=== PATIENT | female | born 1985 | race Caucasian/White ===

== ENCOUNTER 2024-05-26 11:21 | Outpatient (AMB) | payer BC, SELFPAY ==
--- NOTE | 2024-05-26 11:25 | A.OFFPC_ITS ---
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: No Is last menstrual period known: Yes Last menstrual period: 05/04/24 Post menopausal: No Patient : No Allergies No Known Allergies Allergy (Verified 05/26/24 11:40) Medication List - Last Reconciled 05/26/24 by Raquel Sunshine CNP fexofenadine-pseudoephedrine 180-240 mg ER (Tabitha-D 24 Hour) 1 tab PO QAM Tobacco use date assessed: 05/26/24 Dental Screening Dental Screen Date: 05/26/24 Did you have a dental visit in the last 12 months?: No Did you have a dental problem in the last 6 months where you did not have access to dental care?: No Was dental information given to patient?: Patient declined HPI HPI Comments History of Present Illness Details New patient Prior PCP:?[facility] Last office visit/CPE: About 2 years Acute issue(s): [place] of both ears -She wears hearing aids She is on Tabitha D once daily Reports intermittent allergic skin reactions with rash, swollen lip, tongue, wrist, or finger for over 2 years. Her last episode with a swollen finger was 5 days ago. No acute symptoms at this time. She was followed by [facility]; last visit was 2 years ago; she has an appointment with them next month but needs a referral from her PCP PMHx: Psoriasis, eczema, [place] both ears SurgHx: Lumpectomy (left lateral breast), ear tubes bilaterally FHx: Dad: HTN. Mom: DM. MGM: DM. MGF: DM SocHx: Nonsmoker. Drinks 1-2 glasses of wine monthly. No recreational drugs Last eye exam was 2-3 years ago Last [facility] [place] 3 years ago: normal. Record not available. She will sign a release for her PCP to obtain record Last tetanus vaccine was over 10 years ago, declines vaccination She has never been vaccinated for the flu and declines vaccination at this time [facility] Medical History (Updated 05/26/24 @ 15:01 by Raquel Sunshine CNP) Psoriasis Eczema Surgical History (Updated 05/26/24 @ 11:40 by Lakia Ferrell MA) History of placement of ear tubes H/O lumpectomy Family History (Updated 05/26/24 @ 11:43 by Lakia Ferrell MA) Father High blood pressure High cholesterol Mother Diabetes Maternal Grandfather Diabetes Maternal Grandmother Diabetes Brother Diabetes Social History Housing: House Patient Tobacco Use Status: Never used Tobacco e-Cigarette/Vaping Use: Never Used Second Hand Smoke Exposure: No service: No Current occupational status: employed 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 1. Little interest or pleasure in doing things: not at all 2. Feeling down, depressed, or hopeless: not at all 3. Trouble falling or staying asleep, or sleeping too much: not at all 4. Feeling tired or having little energy: several days 5. Poor appetite or overeating: more than half the days 6. Feeling bad about yourself - or that you are a failure or have let yourself or your family down: not at all 7. Trouble concentrating on things, such as reading the newspaper or watching television: several days 8. Moving or speaking so slowly that other people could have noticed. Or the opposite - being so fidgety or restless that you have been moving around a lot more than usual: not at all 9. Thoughts that you would be better off or of hurting yourself in some way: not at all Total score: 4 Depression Screening Interpretation: Negative Depression Screening Done: Yes 50454 - PHQ-9 Billing: Yes Source: Developed by Drs. Bob Juarez, Madiha Bolanos, Faizan Hobson and colleagues, with an educational padmini from [employer] Thrive Questionnaire Date Thrive assessed: 05/26/24 I am a: Patient What is your living situation today?: I have a steady place to live Within the past 12 months, did the food you bought not last and you didn't have the money to get more?: Never true Within the past 12 months, did you worry whether your food would run out before you got money to buy more?: Never true Do you have trouble paying for medicines?: No Do you have trouble getting transportation to medical appointments?: No Do you have trouble paying your heating and electricity bill?: No Do you have trouble taking care of your child, family member or friend?: No Do you have trouble with day-to-day activities such as bathing, preparing meals, shopping, managing finances, etc.?: No Are you currently unemployed and looking for a job?: No Are you interested in more education?: No Please select the resources that you would like help with: None Currently or been in a relationship where the following occur: No concerns reported THRIVE Score: 0 AUDIT C Alcohol Use Questionnaire (AUDIT-C) 1. How often do you have a drink containing alcohol?: 2-4 times a month 2. How many drinks containing alcohol do you have on a typical day when you are drinking?: 1 or 2 3. How often do you have six or more drinks on one occasion?: Never Total Score: 2 Score Reviewed/Action Taken: Yes EMMA-7 AMB Questionnaire EMMA-7 Date EMMA - 7 assessed: 05/26/24 Feeling nervous, anxious, or on edge: 1 = Several days Not being able to stop or control worryin = Not at all Worrying too much about different things: 1 = Several days Trouble relaxin = Not at all Being so restless that it is hard to sit still: 0 = Not at all Becoming easily annoyed or irritable: 0 = Not at all Feeling afraid as if something awful might happen: 0 = Not at all Total EMMA-7 score (0-4 normal; 5-9 mild; 10-14 moderate; 15-21 severe): 2 Source: Developed by Drs. Bob Juarez, Madiha Bolanos, Faizan Hobson and colleagues, with an educational padmini from [employer] EMMA-7 Assessment Billing EMMA-7 Assessment Tool: EMMA-7 Assessment 79387 Review of Systems Const Details: Denies chills, Denies fatigue, Denies fever(s), Denies headache(s) and Denies weakness HEENT Denies change in vision, Denies dizziness, Denies headache(s), Denies hearing loss, Denies nasal congestion, Denies sinus pain, Denies sinus pressure and Denies sore throat Card Denies chest pain, Denies lightheadedness, Denies dyspnea and Denies other (palpitations) Resp Denies cough, Denies dyspnea and Denies wheezing GI Denies abdominal pain, Denies melena, Denies hematochezia, Denies change in bowel habits, Denies dyspepsia and Denies nausea Denies hematuria and Denies dysuria Musc Denies abnormal gait, Denies myalgias, Denies arthralgias, Denies numbness and Denies tingling Skin/Breast Denies rash, Denies unusual bruising and Denies wounds Neuro Denies abnormal gait, Denies dizziness, Denies headache(s), Denies memory loss, Denies numbness, Denies Sensory deficit (Neuro), Denies tingling and Denies weakness Psych Denies anxiety, Denies depression and Denies memory loss Endo Denies cold intolerance, Denies fatigue, Denies heat intolerance, Denies polydipsia and Denies polyuria Wayne/Lymph Denies easy bleeding and Denies easy bruising Aller/Immun Denies wheezing Physical exam (Primary Care) Vital Signs: Last Vital Signs Temp 99.1 F 05/26/24 11:32 Pulse 94 05/26/24 11:32 Resp 16 05/26/24 11:32 BP 130/92 H 05/26/24 11:32 Pulse Ox 100 05/26/24 11:32 Oxygen Delivery Method Room Air 05/26/24 11:32 BMI result Body Mass Index 41.8 Tobacco/Smoking Status: Tobacco use Status Tobacco use date assessed 05/26/24 05/26/24 11:31 Patient Tobacco Use Status Never used Tobacco 05/26/24 11:31 e-Cigarette/Vaping Use Never Used 05/26/24 11:31 Depression Screening Interpretation: Negative Currently or been in a relationship where the following occur: No concerns reported Const Other: General: no acute distress, well developed, alert and awake Nutritional Appearance: well nourished Orientation/consciousness: patient oriented x3 HENMT Head: Yes normocephalic and Yes atraumatic Ears: [place] bilaterally and impacted cerumen bilaterally, occluding the TMs General nose exam: Normal external nose present and Normal nares present Mouth: Normal oral and palatal mucosa present and moist mucous membranes Teeth and gingiva: dentition normal Throat: Yes oropharynx normal Eyes Pupils: Equal, round and reactive pupils present and Pupil accommodation reflex normal EOM: EOMs intact bilaterally Neck Neck: Yes normal visual inspection, Yes no lymphadenopathy and Yes trachea midline Thyroid: Thyroid normal Carotids: no bruits Lymphatic: no lymphadenopathy noted Chest Chest palpation & inspection: normal inspection of the chest Resp Effort & Inspection: normal respiratory effort Auscultation: clear to auscultation bilaterally Cardio Rate: regular rate Rhythm: regular rhythm Heart sounds: S1 normal heart sound present, S2 normal heart sound present, no gallops, no murmurs and no rubs Bruits: no abdominal aortic bruits and no carotid bruits GI Palpation (GI): No Abdominal aortic bruit present, Soft to palpation, nontender, No hepatosplenomegaly present and No Rebound tenderness present Auscultation: normal bowel sounds General: Yes no CVA tenderness Back/Spine/Pelvis Back: no CVA tenderness Cervical Spine: cervical ROM normal and No Cervical spine tenderness Thoracic/Lumbar Spine: thoraco-lumbar ROM normal, No pain with thoraco-lumbar ROM, No thoracic spinal tenderness and No lumbar spinal tenderness Skin General: warm and dry. Normal skin color. Normal skin turgor Lesions: no lesions Rashes: no rashes Trauma: no lacerations or abrasions Wounds: no wounds Nails: normal Neuro General: patient oriented x3, gait normal and CN's II-XI intact bilaterally Cranial nerves: Yes Equal, round and reactive pupils present Cognition (Neuro): normal cognition Gait exam (Neuro): Normal gait present Motor exam (neuro): 5/5 motor strength present throughout Sensory Exam: No Sensory deficit (Neuro) Deep tendon reflexes (DTR's): Right patellar reflex intensity grade: 2+ and Left patellar reflex intensity grade: 2+ Extrem General: Yes normal to inspection, No edema and No calf tenderness Psych Appearance: grossly normal Affect: normal affect Attitude: cooperative Thought process: Normal thought process present Coding Level of Care Code New Pt Level 4 (53909) New Pt Prev Care 40-64y(22397) Diagnoses Normal physical examination, routine Z00.00 Allergies T78.40XA Eye exam, routine Z01.00 Impacted cerumen of both ears H61.23 Vaccine counseling Z71.85 Morbid obesity with BMI of 40.0-44.9, adult E66.01; Z68.41 [place] (hard of hearing) H91.90 Laboratory tests ordered as part of a complete physical exam (CPE) Z00.00 Additional Codes EMMA-7 Assessment Billing - EMMA-7 Assessment Tool: EMMA-7 Assessment 85387 ([id number]) Assessment & Plan Assessment & Plan (1) Normal physical examination, routine: Code(s): Z00.00 - Encounter for general adult medical examination without abnormal findings Category: Medical Plan: No significant functional limitations noted Continue current treatment regimen Healthy diet and routine exercise encouraged Advised to get lab work done in follow-up in 2-3 weeks for labs review and bilateral ear lavage Return sooner with symptoms or concerns Verbalized understanding and agreed with treatment plan (2) Allergies: Code(s): T78.40XA - Allergy, unspecified, initial encounter Category: Medical Plan: Reports intermittent allergic skin reaction, including swelling and rash, for the past 2 years. No acute symptoms. She was followed by [facility] and has a follow-up appointment with them next week but needs a referral from her PCP Normal skin exam Continue to take antihistamine as needed Referred to [facility] (3) Eye exam, routine: Code(s): Z01.00 - Encounter for examination of eyes and vision without abnormal findings Category: Medical Plan: Last eye exam was 2-3 years ago Referred to Ophthalmology for routine eye exam (4) Impacted cerumen of both ears: Code(s): H61.23 - Impacted cerumen, bilateral Category: Medical Plan: Impacted cerumen of both ears, occluding the TMs. No overt infection Debrox ordered. Advised to use as prescribed Follow-up for bilaterally ear lavage in 2-3 weeks Verbalized understanding and agreed with the plan (5) Vaccine counseling: Code(s): Z71.85 - Encounter for immunization safety counseling Category: Medical Plan: Her last tetanus vaccine was over 10 years ago. She has never been vaccinated for the flu Instructed on importance of vaccination and encouraged to get vaccinated (6) Morbid obesity with BMI of 40.0-44.9, adult: Code(s): E66.01 - Morbid (severe) obesity due to excess calories; Z68.41 - Body mass index [BMI] 40.0-44.9, adult Category: Medical Plan: She currently weighs 267 lb, BMI is 41.8 Declines referral to dietitian or underwriting assistant notes that she will start making lifestyle changes, including diet and exercise Healthy diet and routine exercise encouraged She may inform her PCP as needed for dietitian or weight management referral Verbalized understanding and agreed with the plan (7) [place] (hard of hearing): Code(s): H91.90 - Unspecified hearing loss, unspecified ear Category: Medical Plan: Hard of hearing of both ears with ear tubes bilaterally Had of hearing physical during exam She uses hearing aids (8) Laboratory tests ordered as part of a complete physical exam (CPE): Code(s): Z00.00 - Encounter for general adult medical examination without abnormal findings Category: Medical Plan: Fasting labs ordered as part of a complete physical exam. Advised to fast for at least 10 hours before getting labs drawn. May drink water Verbalized understanding and agreed with treatment plan. Orders: Orders Comprehensive [place]. Panel Fast Today Z00.00 - Encounter for general adult medical examination without abnormal findings Lipid Panel Today Z00.00 - Encounter for general adult medical examination without abnormal findings Complete Blood Count Auto Diff Today Z00.00 - Encounter for general adult medical examination without abnormal findings TSH reflex Free T4 Today Z00.00 - Encounter for general adult medical examination without abnormal findings UA CC w/rflx Micro + Cult Today Z00.00 - Encounter for general adult medical examination without abnormal findings Microalbumin, Random (w Creat) Today Z00.00 - Encounter for general adult medical examination without abnormal findings Referrals Allergy & Immunology Referral T78.40XA - Allergy, unspecified, initial encounter Ophthalmology Referral Z01.00 - Encounter for examination of eyes and vision without abnormal findings Medications: New carbamide peroxide 6.5% (Debrox) 10 drps otic (ears) DAILY 4 days 15 mL 0RF
[2024-05-26 11:32] VITALS: BP 130/92; PULSE 94; RESP 16; TEMP 37.3; O2SAT 100; BMI 41.8
[2024-05-26 12:05] VITALS: BP 126/90
== END 2024-05-26 12:09 | disposition home or self-care (01) ==
PROVIDERS: Visit Provider Nurse Practitioner Family
DX: Z00.00 Encounter for general adult medical examination without abnormal findings (principal); H61.23 Impacted cerumen, bilateral; E66.813 Obesity, class 3; Z68.41 Body mass index [BMI] 40.0-44.9, adult; T78.40XA Allergy, unspecified, initial encounter; Z71.85 Encounter for immunization safety counseling; H91.93 Unspecified hearing loss, bilateral

== ENCOUNTER → 2024-05-26 11:21 | Outpatient (BNVA) | payer BC, SELFPAY | PROVIDERS: Visit Provider Nurse Practitioner Family | DX: Z00.00 Encounter for general adult medical examination without abnormal findings (principal); T78.40XA Allergy, unspecified, initial encounter; H61.23 Impacted cerumen, bilateral; E66.01 Morbid (severe) obesity due to excess calories; Z68.41 Body mass index [BMI] 40.0-44.9, adult; H91.90 Unspecified hearing loss, unspecified ear | CPT/HCPCS: 96127 ==

== ENCOUNTER 2024-06-07 14:04 | Outpatient (REF) | payer BC, SELFPAY ==
[2024-06-07 17:33] LABS: MANUAL DIFF FLAG NO
[2024-06-07 17:39] LABS: Appearance Urine Clear; Color Urine Yellow; Glucose Urine UA Negative (Negative); Leukocyte Esterase Urine Trace (Negative); Nitrite Urine Negative (Negative); PH 6.5 (5.0-9.0); Specific Gravity - Urine >= 1.030 (1.005-1.025); UMIC TRIGGER UACC YES; Urine Blood Negative (Negative); Urine Ketones Negative (Negative); Urine Protein Negative (Neg-Trace)
[2024-06-07 17:43] LABS: Basophils Percent Auto 0.3 % (0-2); Eosinophils Percent Auto 0.5 % (0-4); Hematocrit 39.2 % (37.0-47.0); Hemoglobin 12.6 g/dl (12.0-16.0); Imm Gran Abs Auto 0.03 X10*3/uL (0.00-0.03); Imm Gran Pct Auto 0.4 % (0.0-0.4); Lymphocytes Absolute Auto 1.9 X10*3/uL (1.2-4.9); Lymphocytes Percent Auto 24.4 % (20-40); Mean Corpuscular HGB Conc 32.1 g/dl (31.0-35.0); Mean Corpuscular Volume 87.1 fL (80.0-98.0); Mean Platelet Volume 11.2 fL (9.4-12.3); Monocytes Absolute Auto 0.5 X10*3/uL (0.1-1.2); Monocytes Percent Auto 6.2 % (2-11); Neutrophils Absolute Auto 5.4 x10*3/uL (2.0-8.3); Neutrophils Percent Auto 68.2 % (45-73); Platelet Count 292 X10*3/uL (160-400); White Blood Count 7.9 X10*3/uL (4.8-10.8)
[2024-06-07 17:45] LABS: Bacteria Urine None Seen (None Seen); Hyaline Casts Urine 0-2 /LPF (0-2); RBC Urine 0-2 /HPF (0-2); Squamous Epithelial Cell Urine 0-2 /HPF (0-2); WBC Urine 0-5 /HPF (0-5)
[2024-06-07 18:09] LABS: Alanine Aminotransferase 11 U/L (0-31); Albumin Level 4.1 g/dL (3.5-5.0); Alkaline Phosphatase 90 U/L (39-117); Anion Gap 12 (12-20); Aspartate Amino Transferase 19 U/L (5-31); Bilirubin Total 0.5 mg/dL (0.0-1.0); Blood Urea Nitrogen 12 mg/dL (9-16); Calcium 9.1 mg/dL (8.4-10.2); Carbon Dioxide 23 mmol/L (22-29); Chloride 107 mmol/L (96-108); Cholesterol 151 mg/dL (<200); Estimated Glomerular Filt Rate > 60; Glucose Fasting 83 mg/dL (60-99); HDL Cholesterol 48 mg/dL (>40); LDL Cholesterol Calculated 92 mg/dL (<100); Sodium 138 mmol/L (135-145); Total Protein 8.3 g/dL (6.5-8.0); Triglycerides 58 mg/dL (<150)
[2024-06-07 18:16] LABS: TSH reflex Free T4 2.67 uIU/mL (0.32-4.0)
[2024-06-07 18:19] LABS: Microalbum/Creatinine Ratio Ur 3.3 ug/mg cr (<30)
== END 2024-06-07 14:05 | disposition home or self-care (01) ==
LOC: HO.WFDLDS 14:04
PROVIDERS: Visit Provider Nurse Practitioner Family
DX: Z00.00 Encounter for general adult medical examination without abnormal findings (principal)
CPT/HCPCS: 36415; 80053; 80061; 81001; 82043; 82570; 84443; 85025

== ENCOUNTER 2024-06-15 09:53 | Outpatient (AMB) | payer BC, SELFPAY ==
--- NOTE | 2024-06-15 09:58 | MHC.PC.OV ---
Vital Signs 06/15/24 10:05 Height 5 ft 7 in Weight 266 lb 2 oz BMI 41.7 BP 122/70 Blood Pressure Location Rt brachial Position Sitting Respiration 16 Pulse 98 Pulse Source Pulse Oximeter Temp 98.2 F Temp Source Oral Pulse Oximetry (%) 99 Oxygen Delivery Method Room Air Intake Visit Reasons: - Lab Review/bilateral ear lavage Intake Note: patient here for lab review and bilateral ear lavage. Space Operations Required: No Is last menstrual period known: Yes Last menstrual period: 06/03/24 Post menopausal: No Patient : No Allergies No Known Allergies Allergy (Verified 06/15/24 10:20) Medication List - Last Reconciled 06/15/24 by Raquel Sunshine CNP carbamide peroxide 6.5% (Debrox) 10 drps otic (ears) DAILY 4 days fexofenadine-pseudoephedrine 180-240 mg ER (Tabitha-D 24 Hour) 1 tab PO QAM Tobacco use date assessed: 06/15/24 Dental Screening Dental Screen Date: 06/15/24 Did you have a dental visit in the last 12 months?: No Did you have a dental problem in the last 6 months where you did not have access to dental care?: No Was dental information given to patient?: Patient has dentist HPI HPI Comments History of Present Illness Details 38-year-old female presents for review of recent lab results and bilateral ear lavage follow-up She has her hard of hearing of both ears with ear tubes bilaterally. She wears hearing aids but has not worn them in over a month No acute symptoms at this time [facility] Medical History (Updated 05/26/24 @ 15:01 by Raquel Sunshine CNP) Psoriasis Eczema Surgical History (Updated 05/26/24 @ 11:40 by Lakia Ferrell MA) History of placement of ear tubes H/O lumpectomy Family History (Updated 05/26/24 @ 11:43 by Lakia Ferrell MA) Father High blood pressure High cholesterol Mother Diabetes Maternal Grandfather Diabetes Maternal Grandmother Diabetes Brother Diabetes Social History Housing: House Patient Tobacco Use Status: Never used Tobacco e-Cigarette/Vaping Use: Never Used Second Hand Smoke Exposure: No Patient : No service: No Current occupational status: employed 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 1. Little interest or pleasure in doing things: not at all 2. Feeling down, depressed, or hopeless: not at all 3. Trouble falling or staying asleep, or sleeping too much: not at all 4. Feeling tired or having little energy: several days 5. Poor appetite or overeating: several days 6. Feeling bad about yourself - or that you are a failure or have let yourself or your family down: not at all 7. Trouble concentrating on things, such as reading the newspaper or watching television: not at all 8. Moving or speaking so slowly that other people could have noticed. Or the opposite - being so fidgety or restless that you have been moving around a lot more than usual: not at all 9. Thoughts that you would be better off or of hurting yourself in some way: not at all Total score: 2 Depression Screening Interpretation: Negative Depression Screening Done: Yes [id number] - PHQ-9 Billing: Yes Source: Developed by Drs. Bob Juarez, Madiha Bolanos, Faizan Hobson and colleagues, with an educational padmini from [employer]. Thrive Questionnaire Date Thrive assessed: 06/15/24 I am a: Patient What is your living situation today?: I have a steady place to live Within the past 12 months, did the food you bought not last and you didn't have the money to get more?: Often true Within the past 12 months, did you worry whether your food would run out before you got money to buy more?: Often true Do you have trouble paying for medicines?: No Do you have trouble getting transportation to medical appointments?: No Do you have trouble paying your heating and electricity bill?: No Do you have trouble taking care of your child, family member or friend?: No Do you have trouble with day-to-day activities such as bathing, preparing meals, shopping, managing finances, etc.?: No Are you currently unemployed and looking for a job?: No Are you interested in more education?: No Please select the resources that you would like help with: None Currently or been in a relationship where the following occur: No concerns reported THRIVE Score: 2 AUDIT C Alcohol Use Questionnaire (AUDIT-C) 1. How often do you have a drink containing alcohol?: Monthly or less 2. How many drinks containing alcohol do you have on a typical day when you are drinking?: 1 or 2 3. How often do you have six or more drinks on one occasion?: Never Total Score: 1 Score Reviewed/Action Taken: Yes EMMA-7 AMB Questionnaire EMMA-7 Date EMMA - 7 assessed: 05/26/24 Feeling nervous, anxious, or on edge: 0 = Not at all Not being able to stop or control worryin = Not at all Worrying too much about different things: 0 = Not at all Trouble relaxin = Not at all Being so restless that it is hard to sit still: 0 = Not at all Becoming easily annoyed or irritable: 0 = Not at all Feeling afraid as if something awful might happen: 0 = Not at all Total EMMA-7 score (0-4 normal; 5-9 mild; 10-14 moderate; 15-21 severe): 0 Source: Developed by Drs. Bob Juarez, Madiha Bolanos, Faizan Hobson and colleagues, with an educational padmini from [employer]. Review of Systems Const Details: Const Denies chills, Denies fatigue, Denies fever(s), Denies headache(s) and Denies weakness ENT Reports as per HPI Card Denies chest pain, Denies lightheadedness, Denies dyspnea and Denies other (Palpitations) Resp Denies cough, Denies dyspnea, Denies wheezing and Denies other ( shortness of breath) GI Denies abdominal pain, Denies melena, Denies hematochezia, Denies change in bowel habits, Denies dyspepsia and Denies nausea Denies hematuria and Denies dysuria Musc Denies abnormal gait, Denies myalgias, Denies arthralgias, Denies numbness and Denies tingling Skin/Breast Denies rash, Denies unusual bruising and Denies wounds Neuro Denies abnormal gait, Denies dizziness, Denies headache(s), Denies memory loss, Denies numbness, Denies Sensory deficit (Neuro), Denies tingling and Denies weakness Psych Denies anxiety, Denies depression, Denies memory loss Endo Denies cold intolerance, Denies fatigue, Denies heat intolerance, Denies polydipsia and Denies polyuria Aller/Immun Denies wheezing Physical exam (Primary Care) Vital Signs: Last Vital Signs Temp 98.2 F 06/15/24 10:05 Pulse 98 06/15/24 10:05 Resp 16 06/15/24 10:05 BP 122/70 06/15/24 10:05 Pulse Ox 99 06/15/24 10:05 Oxygen Delivery Method Room Air 06/15/24 10:05 BMI result Body Mass Index 41.7 Tobacco/Smoking Status: Tobacco use Status Tobacco use date assessed 06/15/24 06/15/24 10:05 Patient Tobacco Use Status Never used Tobacco 06/15/24 10:00 e-Cigarette/Vaping Use Never Used 06/15/24 10:00 PHQ-9: PHQ-9 Score PHQ-9: Total score 2 06/15/24 10:05 Depression Screening Interpretation: Negative Thrive Assessment: Date of Thrive Assessment Date Thrive assessed 06/15/24 06/15/24 10:05 Currently or been in a relationship where the following occur: No concerns reported Const Other: General: no acute distress and well developed Nutritional Appearance: well nourished Orientation/consciousness: patient oriented x3 HENMT Head is normocephalic Impacted cerumen to both ears occluding the TMs Nasal turbinates and oropharynx are pink and moist Sinuses are nontender with palpation No auricular or cervical lymphadenopathy Eyes General: appearance normal, both eyes and all related structures Pupils: Equal, round and reactive pupils present EOM: EOMs intact bilaterally Resp Effort & Inspection: normal respiratory effort Auscultation: clear to auscultation bilaterally Cardio Rate: regular rate Rhythm: regular rhythm Heart sounds: S1 normal heart sound present, S2 normal heart sound present, no gallops, no murmurs and no rubs GI Palpation (GI): No Abdominal aortic bruit present, Soft to palpation, nontender, No hepatosplenomegaly present and No Rebound tenderness present Auscultation: normal bowel sounds General: Yes no CVA tenderness Back/Spine/Pelvis Back: no CVA tenderness Extrem General: Yes normal to inspection, No edema and No calf tenderness Skin General: warm and dry. Normal skin color. Normal skin turgor Neuro General: patient oriented x3, gait normal and no focal neuro deficit Cranial nerves: Yes Equal, round and reactive pupils present Cognition (Neuro): normal cognition Gait exam (Neuro): Normal gait present Sensory Exam: No Sensory deficit (Neuro) Psych Appearance: grossly normal Affect: normal affect Attitude: cooperative Thought process: Normal thought process present Coding Level of Care Code Est Pt Level 4 (16182) Diagnoses [place] (hard of hearing) H91.90 Impacted cerumen of both ears H61.23 Assessment & Plan Assessment & Plan (1) [place] (hard of hearing): Code(s): H91.90 - Unspecified hearing loss, unspecified ear Category: Medical Plan: Some cerumen removed from the left ear with lavage; left ear canal became patent with small opening to the TM, no overt infection. Unable to remove cerumen from the right ear. Patient reports continued hard of hearing without her hearing aids. She has not wear her hearing aids in over a month. She has not been evaluated by an network support manager in several years. Will referred to ENT for cerumen removal. Encouraged to wear hearing aids and if she continues to have difficulty hearing after cerumen removal, will referred to network support manager. Verbalized understanding and agreed with the plan. (2) Impacted cerumen of both ears: Code(s): H61.23 - Impacted cerumen, bilateral Category: Medical Plan: Plan as above Orders: Referrals Ear/Nose/Throat Referral H61.23 - Impacted cerumen, bilateral, H91.90 - Unspecified hearing loss, unspecified ear
[2024-06-15 10:05] VITALS: BP 122/70; PULSE 98; RESP 16; TEMP 36.8; O2SAT 99; BMI 41.7
== END 2024-06-15 13:44 | disposition home or self-care (01) ==
LOC: HO.HMCFM 09:54
PROVIDERS: Visit Provider Nurse Practitioner Family
DX: H91.93 Unspecified hearing loss, bilateral (principal); H61.22 Impacted cerumen, left ear

== ENCOUNTER → 2024-06-15 09:53 | Outpatient (BNVA) | payer BC, SELFPAY | PROVIDERS: Visit Provider Nurse Practitioner Family | DX: H61.23 Impacted cerumen, bilateral (principal) | CPT/HCPCS: 69209 ==

== ENCOUNTER 2024-06-21 13:38 | Outpatient (AMB) | payer BC, SELFPAY ==
--- NOTE | 2024-06-21 13:50 | MHC.PC.OV ---
Vital Signs 06/21/24 13:54 Height 5 ft 7 in Weight 269 lb BMI 42.1 BP 128/90 H Blood Pressure Location Rt brachial Position Sitting Respiration 16 Pulse 98 Pulse Source Pulse Oximeter Temp 98.7 F Temp Source Oral Pulse Oximetry (%) 100 Oxygen Delivery Method Room Air Intake Visit Reasons: right ear pain Intake Note: patient here c/o right ear pain. [employer] Cost Estimator Required: No Is last menstrual period known: Yes Last menstrual period: 06/03/24 Post menopausal: No Patient : No Allergies No Known Allergies Allergy (Verified 06/21/24 13:54) Tobacco use date assessed: 06/21/24 Dental Screening Dental Screen Date: 06/15/24 Did you have a dental visit in the last 12 months?: No Did you have a dental problem in the last 6 months where you did not have access to dental care?: No Was dental information given to patient?: Patient has dentist HPI HPI Comments History of Present Illness Details 38-year-old female presents with complaints of [place] of her right ear. She establish care in May and had impacted cerumen of both ears. She had bilateral ear lavage on 06/15/2024. Some cerumen removed from her left ear. Was not able to remove cerumen in the right ear. She notes that her right hearing worsened after the ear lavage. She was referred to ENT for cerumen removal of the right ear. [facility] Medical History (Updated 06/21/24 @ 13:55 by Raquel Sunshine CNP) Psoriasis Eczema Surgical History (Updated 05/26/24 @ 11:40 by Lakia Ferrell MA) History of placement of ear tubes H/O lumpectomy Family History (Updated 05/26/24 @ 11:43 by Lakia Ferrell MA) Father High blood pressure High cholesterol Mother Diabetes Maternal Grandfather Diabetes Maternal Grandmother Diabetes Brother Diabetes Social History Housing: House Patient Tobacco Use Status: Never used Tobacco e-Cigarette/Vaping Use: Never Used Second Hand Smoke Exposure: No service: No Current occupational status: employed 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 Current occupational exposures/hazards: No Cognitive needs: No Hearing needs: Yes Vision needs: No Female Reproductive History Menstrual Date of last menstrual period: 06/03/24 Questionnaire Thrive Questionnaire Date Thrive assessed: 06/08/24 I am a: Patient What is your living situation today?: I have a steady place to live Within the past 12 months, did the food you bought not last and you didn't have the money to get more?: Often true Within the past 12 months, did you worry whether your food would run out before you got money to buy more?: Often true Do you have trouble paying for medicines?: No Do you have trouble getting transportation to medical appointments?: No Do you have trouble paying your heating and electricity bill?: No Do you have trouble taking care of your child, family member or friend?: No Do you have trouble with day-to-day activities such as bathing, preparing meals, shopping, managing finances, etc.?: No Are you currently unemployed and looking for a job?: No Are you interested in more education?: No Please select the resources that you would like help with: None Currently or been in a relationship where the following occur: No concerns reported THRIVE Score: 2 EMMA-7 AMB Questionnaire EMMA-7 Date EMMA - 7 assessed: 05/26/24 Source: Developed by Drs. Bob Juarez, Madiha Bolanos, Faizan Hobson and colleagues, with an educational padmini from [employer]. Review of Systems Const Details: Const Denies chills, Denies fatigue, Denies fever(s), Denies headache(s) and Denies weakness ENT Reports as per HPI Card Denies chest pain, Denies lightheadedness, Denies dyspnea and Denies other (Palpitations) Resp Denies cough, Denies dyspnea, Denies wheezing and Denies other ( shortness of breath) GI Denies abdominal pain, Denies melena, Denies hematochezia, Denies change in bowel habits, Denies dyspepsia and Denies nausea Denies hematuria and Denies dysuria Musc Denies abnormal gait, Denies myalgias, Denies arthralgias, Denies numbness and Denies tingling Skin/Breast Denies rash, Denies unusual bruising and Denies wounds Neuro Denies abnormal gait, Denies dizziness, Denies headache(s), Denies memory loss, Denies numbness, Denies Sensory deficit (Neuro), Denies tingling and Denies weakness Psych Denies anxiety, Denies depression, Denies memory loss Endo Denies cold intolerance, Denies fatigue, Denies heat intolerance, Denies polydipsia and Denies polyuria Aller/Immun Denies wheezing Physical exam (Primary Care) Vital Signs: Last Vital Signs Temp 98.7 F 06/21/24 13:54 Pulse 98 06/21/24 13:54 Resp 16 06/21/24 13:54 BP 128/90 H 06/21/24 13:54 Pulse Ox 100 06/21/24 13:54 Oxygen Delivery Method Room Air 06/21/24 13:54 BMI result Body Mass Index 42.1 Tobacco/Smoking Status: Tobacco use Status Tobacco use date assessed 06/21/24 06/21/24 13:57 Patient Tobacco Use Status Never used Tobacco 06/21/24 13:52 e-Cigarette/Vaping Use Never Used 06/21/24 13:52 Thrive Assessment: Date of Thrive Assessment Date Thrive assessed 06/08/24 06/21/24 13:52 Currently or been in a relationship where the following occur: No concerns reported Const Other: General: no acute distress and well developed Nutritional Appearance: well nourished Orientation/consciousness: patient oriented x3 HENMT Head is normocephalic Left ear canal and TM is normal. Impacted cerumen of the right ear occluding the ear canal Nasal turbinates and oropharynx are pink and moist Sinuses are nontender with palpation No auricular or cervical lymphadenopathy Eyes General: appearance normal, both eyes and all related structures Pupils: Equal, round and reactive pupils present EOM: EOMs intact bilaterally Resp Effort & Inspection: normal respiratory effort Auscultation: clear to auscultation bilaterally Cardio Rate: regular rate Rhythm: regular rhythm Heart sounds: S1 normal heart sound present, S2 normal heart sound present, no gallops, no murmurs and no rubs GI Palpation (GI): No Abdominal aortic bruit present, Soft to palpation, nontender, No hepatosplenomegaly present and No Rebound tenderness present Auscultation: normal bowel sounds General: Yes no CVA tenderness Back/Spine/Pelvis Back: no CVA tenderness Cervical Spine: cervical ROM normal and No Cervical spine tenderness Thoracic/Lumbar Spine: thoraco-lumbar ROM normal, No pain with thoraco-lumbar ROM, No thoracic spinal tenderness and No lumbar spinal tenderness Extrem General: Yes normal to inspection, No edema and No calf tenderness Skin General: warm and dry. Normal skin color. Normal skin turgor Lesions: no lesions Rashes: no rashes Trauma: no lacerations or abrasions Wounds: no wounds Nails: normal Neuro General: patient oriented x3, gait normal and no focal neuro deficit Cranial nerves: Yes Equal, round and reactive pupils present Cognition (Neuro): normal cognition Gait exam (Neuro): Normal gait present Sensory Exam: No Sensory deficit (Neuro) Psych Appearance: grossly normal Affect: normal affect Attitude: cooperative Thought process: Normal thought process present Coding Level of Care Code Est Pt Level 3 (48779) Diagnoses Impacted cerumen, right ear H61.21 [place] (hard of hearing) H91.90 Assessment & Plan Assessment & Plan (1) Impacted cerumen, right ear: Code(s): H61.21 - Impacted cerumen, right ear Category: Medical Plan: Significant amount of cerumen removed from the right ear, partially exposed in the ear canal. Patient reports significant hearing improvement ENT referral upgraded from routine to urgent Advised to schedule her next physical for order after 05/26/2025 or sooner with symptoms or concerns Verbalized understanding and agreed with the treatment plan (2) [place] (hard of hearing): Code(s): H91.90 - Unspecified hearing loss, unspecified ear Category: Medical Plan: Plan as above
[2024-06-21 13:54] VITALS: BP 128/90; PULSE 98; RESP 16; TEMP 37.1; O2SAT 100; BMI 42.1
== END 2024-06-21 14:16 | disposition home or self-care (01) ==
LOC: HO.HMCFM 13:39
PROVIDERS: Visit Provider Nurse Practitioner Family
DX: H91.91 Unspecified hearing loss, right ear (principal); H61.21 Impacted cerumen, right ear

== ENCOUNTER → 2024-06-21 13:38 | Outpatient (BNVA) | payer BC, SELFPAY | PROVIDERS: Visit Provider Nurse Practitioner Family | DX: H61.21 Impacted cerumen, right ear (principal) | CPT/HCPCS: 69210 ==

== ENCOUNTER 2025-03-06 12:38 | Outpatient (AMB) | payer BC, SELFPAY ==
--- NOTE | 2025-03-06 12:42 | A.OFFPC_ITS ---
Vital Signs 03/06/25 12:47 Height 5 ft 7 in Weight 248 lb 2 oz BMI 38.9 BP 126/59 L Blood Pressure Location Rt brachial Position Sitting Respiration 16 Pulse 89 Pulse Source Pulse Oximeter Temp 99.1 F Temp Source Oral Pulse Oximetry (%) 99 Oxygen Delivery Method Room Air Intake Visit Reasons: Assumed eczema flair up Intake Note: patient here c/o Eczema flair up for a 1 1/2 month [employer]ician Required: No Is last menstrual period known: Yes Last menstrual period: 02/20/25 Post menopausal: No Patient : No Allergies No Known Allergies Allergy (Verified 03/06/25 13:02) Medication List - Last Reconciled 03/06/25 by Raquel Sunshine CNP fexofenadine-pseudoephedrine 180-240 mg ER (Tabitha-D 24 Hour) 1 tab PO QAM norgestrel (Opill) 1 tab PO DAILY Tobacco use date assessed: 03/06/25 Dental Screening Dental Screen Date: 03/06/25 Did you have a dental visit in the last 12 months?: No Did you have a dental problem in the last 6 months where you did not have access to dental care?: No Was dental information given to patient?: Patient has dentist HPI HPI Comments History of Present Illness Details 39-year-old female presents with complai nts of patches to her posterior neck which has been present for the past 1 and half month. She notes associated intermittent itching, especially if the are not mosturized with lotion. She has tried otc eczema lotion without treatment. She had had similar rash on her eyelids and arms in high school. [facility] Medical History (Updated 03/06/25 @ 13:13 by Raquel Sunshine CNP) Psoriasis Eczema Surgical History (Updated 05/26/24 @ 11:40 by Lakia Ferrell MA) History of placement of ear tubes H/O lumpectomy Family History (Updated 05/26/24 @ 11:43 by Lakia Ferrell MA) Father High blood pressure High cholesterol Mother Diabetes Maternal Grandfather Diabetes Maternal Grandmother Diabetes Brother Diabetes Social History Housing: House Patient Tobacco Use Status: Never used Tobacco e-Cigarette/Vaping Use: Never Used Second Hand Smoke Exposure: No Patient : No service: No Current occupational status: employed 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 1. Little interest or pleasure in doing things: not at all 2. Feeling down, depressed, or hopeless: not at all 3. Trouble falling or staying asleep, or sleeping too much: not at all 4. Feeling tired or having little energy: not at all 5. Poor appetite or overeating: not at all 6. Feeling bad about yourself - or that you are a failure or have let yourself or your family down: not at all 7. Trouble concentrating on things, such as reading the newspaper or watching television: not at all 8. Moving or speaking so slowly that other people could have noticed. Or the opposite - being so fidgety or restless that you have been moving around a lot more than usual: not at all 9. Thoughts that you would be better off or of hurting yourself in some way: not at all Total score: 0 Depression Screening Interpretation: Negative Depression Screening Done: Yes Source: Developed by Drs. Bob Juarez, Madiha Bolanos, Faizan Hobson and colleagues, with an educational padmini from [employer]. Thrive Questionnaire Date Thrive assessed: 03/03/25 I am a: Patient What is your living situation today?: I have a steady place to live Within the past 12 months, did the food you bought not last and you didn't have the money to get more?: Never true Within the past 12 months, did you worry whether your food would run out before you got money to buy more?: Never true Do you have trouble paying for medicines?: No Do you have trouble getting transportation to medical appointments?: No Do you have trouble paying your heating and electricity bill?: No Do you have trouble taking care of your child, family member or friend?: No Do you have trouble with day-to-day activities such as bathing, preparing meals, shopping, managing finances, etc.?: No Are you currently unemployed and looking for a job?: No Are you interested in more education?: Yes Please select the resources that you would like help with: None Currently or been in a relationship where the following occur: No concerns reported THRIVE Score: 0 AUDIT C Alcohol Use Questionnaire (AUDIT-C) 1. How often do you have a drink containing alcohol?: Monthly or less 2. How many drinks containing alcohol do you have on a typical day when you are drinking?: 1 or 2 3. How often do you have six or more drinks on one occasion?: Never Total Score: 1 EMMA-7 AMB Questionnaire EMMA-7 Date EMMA - 7 assessed: 05/26/24 Feeling nervous, anxious, or on edge: 0 = Not at all Not being able to stop or control worryin = Not at all Worrying too much about different things: 0 = Not at all Trouble relaxin = Not at all Being so restless that it is hard to sit still: 0 = Not at all Becoming easily annoyed or irritable: 0 = Not at all Feeling afraid as if something awful might happen: 0 = Not at all Total EMMA-7 score (0-4 normal; 5-9 mild; 10-14 moderate; 15-21 severe): 0 Source: Developed by Drs. Bob Juarez, Madiha Bolanos, Faizan Hobson and colleagues, with an educational padmini from [employer]. Review of Systems Const Details: Const Denies chills, Denies fatigue, Denies fever(s), Denies headache(s) and Denies weakness ENT Denies dizziness and Denies headache(s) Card Denies chest pain, Denies lightheadedness, Denies dyspnea and Denies other (Palpitations) Resp Denies cough, Denies dyspnea, Denies wheezing and Denies other ( shortness of breath) GI Denies abdominal pain, Denies melena, Denies hematochezia, Denies change in bowel habits, Denies dyspepsia and Denies nausea Denies hematuria and Denies dysuria Musc Denies abnormal gait, Denies myalgias, Denies arthralgias, Denies numbness and Denies tingling Skin/Breast Reports as per HPI Neuro Denies abnormal gait, Denies dizziness, Denies headache(s), Denies memory loss, Denies numbness, Denies Sensory deficit (Neuro), Denies tingling and Denies weakness Psych Denies anxiety, Denies depression, Denies memory loss Endo Denies cold intolerance, Denies fatigue, Denies heat intolerance, Denies polydipsia and Denies polyuria Aller/Immun Denies wheezing Physical exam (Primary Care) Vital Signs: Last Vital Signs Temp 99.1 F 03/06/25 12:47 Pulse 89 03/06/25 12:47 Resp 16 03/06/25 12:47 BP 126/59 L 03/06/25 12:47 Pulse Ox 99 03/06/25 12:47 Oxygen Delivery Method Room Air 03/06/25 12:47 BMI result Body Mass Index 38.9 Tobacco/Smoking Status: Tobacco use Status Tobacco use date assessed 03/06/25 03/06/25 12:52 Patient Tobacco Use Status Never used Tobacco 03/06/25 12:44 e-Cigarette/Vaping Use Never Used 03/06/25 12:44 PHQ-9: PHQ-9 Score PHQ-9: Total score 0 03/06/25 12:44 Depression Screening Interpretation: Negative Thrive Assessment: Date of Thrive Assessment Date Thrive assessed 03/03/25 03/06/25 12:44 Currently or been in a relationship where the following occur: No concerns reported Const Other: General: no acute distress and well developed Nutritional Appearance: well nourished Orientation/consciousness: patient oriented x3 HENMT Head: Yes normocephalic and Yes atraumatic Eyes General: appearance normal, both eyes and all related structures Pupils: Equal, round and reactive pupils present EOM: EOMs intact bilaterally Resp Effort & Inspection: normal respiratory effort Auscultation: clear to auscultation bilaterally Cardio Rate: regular rate Rhythm: regular rhythm Heart sounds: S1 normal heart sound present, S2 normal heart sound present, no gallops, no murmurs and no rubs GI Palpation (GI): No Abdominal aortic bruit present, Soft to palpation, nontender, No hepatosplenomegaly present and No Rebound tenderness present Auscultation: normal bowel sounds General: Yes no CVA tenderness Back/Spine/Pelvis Back: no CVA tenderness Cervical Spine: cervical ROM normal and No Cervical spine tenderness Thoracic/Lumbar Spine: thoraco-lumbar ROM normal, No pain with thoraco-lumbar ROM, No thoracic spinal tenderness and No lumbar spinal tenderness Extrem General: Yes normal to inspection, No edema and No calf tenderness Skin General: warm and dry. Normal skin color. Normal skin turgor Lesions: no lesions Rashes: Five patches with dry skin noted to posterior neck; 3/5 patches are approximately 3 x 3 cm, other two are approx. 1 x 1 cm. Trauma: no lacerations or abrasions Wounds: no wounds Nails: normal Neuro General: patient oriented x3, gait normal and no focal neuro deficit Cranial nerves: Yes Equal, round and reactive pupils present Cognition (Neuro): normal cognition Gait exam (Neuro): Normal gait present Sensory Exam: No Sensory deficit (Neuro) Psych Appearance: grossly normal Affect: normal affect Attitude: cooperative Thought process: Normal thought process present Coding Level of Care Code Est Pt Level 4 (27747) Diagnoses Eczema L30.9 Assessment & Plan Assessment & Plan (1) Eczema: Code(s): L30.9 - Dermatitis, unspecified Category: Medical Plan: 39-year-old female presents with complaints of patches to her posterior neck which has been present for the past 1 and half month. She notes associated intermittent itching, especially if the are not mosturized with lotion. She has tried otc eczema lotion without treatment. She had had similar rash on her eyelids and arms in high school. Five patches with dry skin noted to posterior neck; 3/5 patches are approximately 3 x 3 cm, other two are approx. 1 x 1 cm. Triamcinolone acetonide 0.1% cream ordered twice daily; advised to apply to rash as prescribed. Follow-up with worsening or new signs and symptoms. Verbalized understanding and agreed with the plan. Medications: New triamcinolone acetonide 0.1% 1 appl topical BID 30 grams 1RF
[2025-03-06 12:47] VITALS: BP 126/59; PULSE 89; RESP 16; TEMP 37.3; O2SAT 99; BMI 38.9
== END 2025-03-06 13:10 | disposition home or self-care (01) ==
LOC: HO.HMCFM 12:39
PROVIDERS: PCP Nurse Practitioner Family; Visit Provider Nurse Practitioner Family
DX: L30.9 Dermatitis, unspecified (principal)